=== PATIENT | male | born 1950 | race Hispanic/Latino ===

== ENCOUNTER → 2019-09-13 | Outpatient (CLI) | payer MEDICARE ==
[~2019-09-13] MED LIST: ASPI-1005 PO; CANA300T PO; INSU100I3 SQ; INSU3INS3 SQ; LATA2.5D2 OP; LIRA0.6P SQ; LOSA50TA64 PO; PRAV40TA3 PO
== END | disposition home or self-care (01) ==
LOC: RAH 11:13
PROVIDERS: ATTEND Otolaryngology Plastic Surgery within the Head & Neck
DX: R22.1 Localized swelling, mass and lump, neck (principal)
CPT/HCPCS: 76536

== ENCOUNTER → 2020-08-20 | Outpatient (CLI) | payer OTHER ==
[~2020-08-20] MED LIST changes: +LATA2.5D14 OP; -LATA2.5D2 OP
== END | disposition home or self-care (01) ==
LOC: RAH 10:26
PROVIDERS: ATTEND Internal Medicine Cardiovascular Disease
DX: Z13.6 Encounter for screening for cardiovascular disorders (principal)
CPT/HCPCS: 75571

== ENCOUNTER 2020-09-19 05:45 | Day surgery (SDC) | payer MEDICARE ==
[2020-09-17 08:28] LABS: APPEARANCE,URINE Clear (CLEAR); BILIRUBIN,URINE Negative (NEGATIVE); COLOR,URINE Yellow (YELLOW); GLUCOSE, URINE (UA) TRACE mg/dL (NEGATIVE); KETONES,URINE Trace mg/dL (NEGATIVE); LEUKOCYTE ESTERASE ,URINE Trace (NEGATIVE); NITRATE,URINE Negative (NEGATIVE); OCCULT BLOOD,URINE Negative (NEGATIVE); PH,URINE 5.5 (5.0-8.0); PROTEIN,URINE POS 1+ mg/dL (NEGATIVE)
[2020-09-17 09:00] LABS: BACTERIA,URINE Rare /HPF (None Seen); RBC,URINE None Seen /HPF (0-1)
[2020-09-17 09:14] LABS: BASOPHILS % (AUTO) 0.8 % (0.0-5.0); EOSINOPHILS % (AUTO) 3.1 % (0.0-8.0); HEMATOCRIT 39.5 % (42-54); LYMPHOCYTES % (AUTO) 32.9 % (21.0-51.0); MEAN CORPUSCULAR HEMOGLOBIN 27.5 pg (27.0-33.0); MEAN CORPUSCULAR HGB CONC 33.2 g/dL (32.0-36.0); MEAN CORPUSCULAR VOLUME 82.8 fL (79-99); MONOCYTES % (AUTO) 11.3 % (3.0-13.0); NEUTROPHILS % (AUTO) 51.6 % (40.0-77.0); PLATELET COUNT (AUTO) 114 K/uL (130-400); RED BLOOD CELL COUNT(AUTO) 4.77 MIL/uL (4.50-6.20); RED CELL DISTRIBUTION WIDTH 13.8 % (11.0-15.5); WHITE BLOOD COUNT (AUTO) 7.5 K/uL (4.8-10.8)
[2020-09-17 09:21] LABS: CREATININE 1.3 mg/dL (0.5-1.5); POTASSIUM 3.9 mmol/L (3.5-5.1)
[2020-09-17 09:28] LABS: INR 1.02 (0.85-1.15); PROTHROMBIN TIME 11.1 SEC (9.6-11.6)
[2020-09-18 10:17] VITALS: BP 134/75
[~2020-09-19] VITALS: Ht 162.6 cm; Wt 84.2 kg
[2020-09-19] VITALS (9 sets, daily range): BP systolic 128–147; BP diastolic 60–75
[~2020-09-19 05:45] MED LIST changes: +0.9% NACL 500ML IV.SOLN 500 ML IV SCH; +ATOR40TA71 PO; -CANA300T PO; +CHOL100046 PO; +CLOP75TA32 PO; +DULA1.5P SQ; +ICOS1CAP PO; -INSU100I3 SQ; -LATA2.5D14 OP; +LEVO50TA11 PO; -LIRA0.6P SQ; -LOSA50TA64 PO; +METF-444 PO; +METO-408 PO; +NAPR-1023 PO; +PANT40TA54 PO; -PRAV40TA3 PO; +TELM40TA8 PO
[2020-09-19] MEDS ORDERED: 0.9%NACL 1000ML 1,000 ML IV ONE (06:14)
[2020-09-19] MEDS ORDERED: IOHEXOL-350 75 ML VIAL IV ONE (07:13)
[2020-09-19] MEDS ORDERED: HEPARIN 10,000 UNIT/10ML (1,000 UNIT/ML) VIAL ONE (07:13)
[2020-09-19] MEDS ORDERED: IOHEXOL-350 50ML VIAL IV ONE (07:13)
[2020-09-19] MEDS ORDERED: LIDOCAINE HCL 400MG/20ML VIAL ONE (07:13)
[2020-09-19] MEDS ORDERED: MIDAZOLAM HCL 1 MG/ML 2ML VIAL ONE (07:35)
[2020-09-19] MEDS ORDERED: GLUCAGON 1MG KIT 1 MG ML IM PRN (08:15)
[2020-09-19] MEDS ORDERED: DEXTROSE 50%-WATER 50 ML DISP.SYRIN IV PRN (08:15)
== END 2020-09-19 12:45 ==
LOC: DAH 05:45 → DAHIP 05:46 → UNDOADMOB 05:46 → DAH 05:47
PROVIDERS: ATTEND Internal Medicine Cardiovascular Disease
DX: I25.10 Atherosclerotic heart disease of native coronary artery without angina pectoris (principal); I10 Essential (primary) hypertension; G47.33 Obstructive sleep apnea (adult) (pediatric); Z99.89 Dependence on other enabling machines and devices; E03.9 Hypothyroidism, unspecified; E78.5 Hyperlipidemia, unspecified; E11.59 Type 2 diabetes mellitus with other circulatory complications; Z96.643 Presence of artificial hip joint, bilateral; Z98.1 Arthrodesis status; Z88.5 Allergy status to narcotic agent; Z88.8 Allergy status to other drugs, medicaments and biological substances; Z79.4 Long term (current) use of insulin; Z79.01 Long term (current) use of anticoagulants; Z79.82 Long term (current) use of aspirin; Z79.899 Other long term (current) drug therapy
CPT/HCPCS: 36415; 71045; 80048; 81001; 82948 ×2; 85025; 85610; 85730; 93005; 93458; A4215; A4216; A4221; A4222; A4223 ×3; A4606; A4663; A6260; C1760; C1894; J1644; J2250; J3490; J7030; Q9967 ×2; 99156; 99157

== ENCOUNTER → 2023-03-31 | Outpatient (CLI) | payer MEDICARE ==
[~2023-03-31] MED LIST changes: -0.9% NACL 500ML IV.SOLN 500 ML IV SCH; -CLOP75TA32 PO
[2023-03-31 09:24] LABS: CREATININE 1.1 mg/dL (0.5-1.5)
== END | disposition home or self-care (01) ==
LOC: LAB 08:25
PROVIDERS: ATTEND Internal Medicine
DX: R91.1 Solitary pulmonary nodule (principal)
CPT/HCPCS: 36415; 82565; 84520

== ENCOUNTER → 2023-04-01 | Outpatient (CLI) | payer MEDICARE ==
[~2023-04-01] MED LIST changes: +IOHEXOL-350 75 ML VIAL IV ONE
== END | disposition home or self-care (01) ==
LOC: RAH 10:00
PROVIDERS: ATTEND Internal Medicine
DX: R91.1 Solitary pulmonary nodule (principal)
CPT/HCPCS: 71260; Q9967

== ENCOUNTER → 2025-02-14 | Outpatient (CLI) | payer MEDICARE ==
[~2025-02-14] MED LIST changes: -IOHEXOL-350 75 ML VIAL IV ONE; -NAPR-1023 PO; +NAPR-1194 PO
--- NOTE | 2025-02-14 15:09 | HMCIMG ---
STUDY: MRI CERVICAL SPINE WITHOUT IV CONTRAST TECHNIQUE: Multiplanar T1 and T2 weighted sequences were obtained through the cervical spine. CLINICAL INDICATION: Pain Comparison: MRI cervical spine 09/16/2009, x-ray cervical spine 10/28/2014 FINDINGS: The cervical spinal cord and included thoracic spinal cord is normal in appearance and signal intensity. No abnormality at cranio-cervical junction No bone marrow edema. The para-spinal soft tissue are unremarkable. Alignment is anatomic. C2-C3:. Preservation of the disc height. No disc herniation. No central canal or neuroforaminal narrowing. C3-C4:. There is a 2 mm posterior osteo-disc complex and mild ligamentum flavum hypertrophy resulting in mild central canal narrowing.. There is mild to moderate left and mild right neural foraminal narrowing C4-C5:. Preservation of the disc height. There is a 2 mm posterior osteo-disc complex mild to moderate ligamentum flavum hypertrophy resulting in mild central canal narrowing. There is mild to moderate right and moderate left neural foraminal narrowing. C5-C6:. Discectomy. Anterior fusion hardware. Minimal central canal narrowing. Mild bilateral neural foraminal narrowing C6-C7:. Anterior fusion hardware. Complete discectomy. Small endplate marginal spur resulting in mild central canal narrowing.. Mild bilateral neural foraminal narrowing C7-T1:. Preservation of the disc height. No disc herniation. 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 Mild sphenoid sinus mucosal thickening IMPRESSION: Compared to the prior MRI cervical spine 09/16/2009 there has been interval surgical discectomy and anterior fusion C5-C7. There has been interval progression of degenerative changes at C3-C4 and C4-C5 with mild to moderate bilateral neural foraminal narrowing. At C7-T1 there is moderate right and mild to moderate left neural foraminal narrowing. Recommend comparison with x-ray cervical spine series to include bilateral oblique views versus CT C-spine for further evaluation. /Gobles
== END | disposition home or self-care (01) ==
LOC: RAH 13:30
PROVIDERS: ATTEND Internal Medicine
DX: M47.813 Spondylosis without myelopathy or radiculopathy, cervicothoracic region (principal); M48.03 Spinal stenosis, cervicothoracic region; J34.89 Other specified disorders of nose and nasal sinuses; M43.22 Fusion of spine, cervical region; M54.2 Cervicalgia; Z98.1 Arthrodesis status
CPT/HCPCS: 72141